=== PATIENT | male | born 1980 | race Caucasian/White ===

== ENCOUNTER → 2017-05-03 | Outpatient (CLI) | payer BC | END | disposition home or self-care (01) | LOC: C.PATHSPEC 17:41 | PROVIDERS: ATTEND Urology | DX: Z30.2 Encounter for sterilization (principal) ==

== ENCOUNTER 2017-10-25 07:52 | Emergency (ER) | payer BC, OTHER ==
[~2017-10-25] VITALS: Ht 177.8 cm; Wt 105.6 kg
[2017-10-25 07:56] VITALS: TEMP 36.9; Ht 177.8 cm; Wt 105.6 kg
[2017-10-25] MEDS ORDERED: LIDOCAINE HCL 2% VISC SOLN 20 ML UDC PO STA (08:09)
[2017-10-25] MEDS ORDERED: ALUMINUM/MAGNESIUM SUSP 30 ML UDC PO STA (08:09)
[2017-10-25] MEDS ORDERED: OMEP20TA14 PO (08:12)
[2017-10-25 08:44] LABS: ALBUMIN 4.4 gm/dl (3.4-5.0); CALCIUM 9.2 mg/dl (8.5-10.1); CREATININE 0.93 mg/dl (0.60-1.40); POTASSIUM 3.8 mmol/L (3.5-5.1)
[2017-10-25 08:47] LABS: BASO % 0.1 %; BASO ABS # 0.01 K/uL (0-0.2); EOS % 1.1 %; EOS ABS # 0.09 K/uL (0-0.5); HEMATOCRIT 52.8 % (42-52); HEMOGLOBIN 18.8 g/dL (14.0-18.0); IG# 0.04 K/uL (0.00-0.02); LYMPH % 22.4 %; LYMPH ABS # 1.86 K/uL (1.2-3.4); MEAN CELL VOLUME 87.3 fL (80-100); MEAN CORPUSCULAR HEMOGLOBIN 31.1 pg (25-34); MEAN CORPUSCULAR HGB CONC 35.6 g/dl (32-36); MEAN PLATELET VOLUME 11.4 fL (7.4-10.4); MONO % 6.7 %; MONO ABS # 0.56 K/uL (0.11-0.59); NEUT % 69.2 %; NEUT ABS # 5.75 K/uL (1.4-6.5); PLATELET COUNT 181 K/uL (130-400); RED CELL DISTRIBUTION WIDTH CV 13.4 % (11.5-14.5); RED CELL DISTRIBUTION WIDTH SD 42.9 fL (36.4-46.3); WHITE BLOOD COUNT 8.31 K/uL (4.8-10.8)
--- NOTE | 2017-10-25 09:51 | DIAGNOSTIC IMAGING REPORT ---
GALLBLADDER-ABD LIMITED HISTORY: 37 years-old Male right upper quadrant and epigastric pain acute right upper quadrant abdominal pain COMPARISON: None available TECHNIQUE: Multiple real-time sonographic images of the abdominal right upper quadrant were obtained assessing grayscale appearance and color flow FINDINGS: Imaged pancreas is unremarkable with body and tail mostly obscured by bowel gas. There is increased echogenicity and poor through transmission of the liver which measures up to 19 cm in length. No focal hepatic mass lesions. No intrahepatic biliary ductal dilation identified. Common bile duct measures 4 mm, within normal limits. No shadowing cholelithiasis, gallbladder wall thickening or pericholecystic fluid collection. Imaged right kidney is unremarkable without hydronephrosis. IMPRESSION: 1. Probable hepatic steatosis. 2. No cholelithiasis or sonographic evidence of acute cholecystitis. 3. No biliary ductal dilation. The above report was generated using voice recognition software. It may contain grammatical, syntax or spelling errors. Electronically signed by: Jonh Hernandez M.D. 10/25/2017 9:49 AM Dictated Date/Time: 10/25/2017 9:47 AM
--- NOTE | 2017-10-25 10:38 | EMERGENCY ROOM VISIT NOTE ---
History First contact with patient: 07:57 Chief Complaint: ABDOMINAL PAIN Stated Complaint: STOMACH ACHE Nursing Triage Summary: abdominal pain and diarrhea for the past 2 days. denies nausea History of Present Illness The patient is a 37 year old male who presents to the Emergency Room with complaints of stomach pains which started yesterday at 3:30 AM. The patient denies any associated nausea and vomiting. The patient does admit to having 4 loose bowel movements since the onset of the symptoms. The patient denies any hematochezia or melena. The patient denies any heartburn, or urinary symptoms. The patient states that the pain was intermittent but has become more constant. He cannot correlate it with food intake. The patient states that he had similar symptoms a week ago but thought it was due to a lot of [place] food. The patient currently rates his pain at a 6 out of 10. He has not taken anything for the pain. The patient did not drive himself to the ER. The patient was told me that he does have a history of GERD for which she takes Prilosec daily. Review of Systems 10 system review was performed and was negative unless stated otherwise history of present illness. Past Medical/Surgical History No significant past medical history Social History Smoking Status: Current Every Day Smoker Alcohol Use: occasionally Drug Use: none Marital Status: in relationship Occupation Status: employed Current/Historical Medications Scheduled Omeprazole Magnesium (Prilosec Otc), 20 MG PO QAM Physical Exam Vital Signs Date Time Temp Pulse Resp B/P (MAP) Pulse Ox O2 Delivery O2 Flow Rate FiO2 10/25/17 09:20 80 18 139/78 98 Room Air 10/25/17 07:56 36.9 86 18 142/87 97 Room Air Physical Exam GENERAL: 37-year-old white male appears in no acute distress. MENTAL Status: Alert and oriented 3. MOUTH: Mucosa is moist NECK: Supple, no lymphadenopathy noted. No carotid bruits noted. LUNGS: Clear auscultation without wheezes rales or rhonchi. CARDIAC: Regular rate and rhythm without murmur. Pulses is full and equal throughout. BACK: No CVA tenderness noted. ABDOMEN: Positive bowel sounds all 4 quadrants. Soft, tenderness palpation in the right upper quadrant and epigastric region otherwise nontender to palpation without organomegaly or masses. EXTREMITIES: No cyanosis or edema noted. Medical Decision & Procedures ER Provider Diagnostic Interpretation: GALLBLADDER-ABD LIMITED HISTORY: 37 years-old Male right upper quadrant and epigastric pain acute right upper quadrant abdominal pain COMPARISON: None available TECHNIQUE: Multiple real-time sonographic images of the abdominal right upper quadrant were obtained assessing grayscale appearance and color flow FINDINGS: Imaged pancreas is unremarkable with body and tail mostly obscured by bowel gas. There is increased echogenicity and poor through transmission of the liver which measures up to 19 cm in length. No focal hepatic mass lesions. No intrahepatic biliary ductal dilation identified. Common bile duct measures 4 mm, within normal limits. No shadowing cholelithiasis, gallbladder wall thickening or pericholecystic fluid collection. Imaged right kidney is unremarkable without hydronephrosis. IMPRESSION: 1. Probable hepatic steatosis. 2. No cholelithiasis or sonographic evidence of acute cholecystitis. 3. No biliary ductal dilation. The above report was generated using voice recognition software. It may contain grammatical, syntax or spelling errors. Electronically signed by: Jonh Hernandez M.D. 10/25/2017 9:49 AM Laboratory Results 10/25/17 08:05 Red Blood Count 6.05, Mean Corpuscular Volume 87.3, Mean Corpuscular Hemoglobin 31.1, Mean Corpuscular Hemoglobin Concent 35.6, Mean Platelet Volume 11.4, Neutrophils (%) (Auto) 69.2, Lymphocytes (%) (Auto) 22.4, Monocytes (%) (Auto) 6.7, Eosinophils (%) (Auto) 1.1, Basophils (%) (Auto) 0.1, Neutrophils # (Auto) 5.75, Lymphocytes # (Auto) 1.86, Monocytes # (Auto) 0.56, Eosinophils # (Auto) 0.09, Basophils # (Auto) 0.01 10/25/17 08:05 Test 10/25/17 08:05 White Blood Count 8.31 K/uL (4.8-10.8) Red Blood Count 6.05 M/uL (4.7-6.1) Hemoglobin 18.8 g/dL (14.0-18.0) Hematocrit 52.8 % (42-52) Mean Corpuscular Volume 87.3 fL (80-100) Mean Corpuscular Hemoglobin 31.1 pg (25-34) Mean Corpuscular Hemoglobin Concent 35.6 g/dl (32-36) Platelet Count 181 K/uL (130-400) Mean Platelet Volume 11.4 fL (7.4-10.4) Neutrophils (%) (Auto) 69.2 % Lymphocytes (%) (Auto) 22.4 % Monocytes (%) (Auto) 6.7 % Eosinophils (%) (Auto) 1.1 % Basophils (%) (Auto) 0.1 % Neutrophils # (Auto) 5.75 K/uL (1.4-6.5) Lymphocytes # (Auto) 1.86 K/uL (1.2-3.4) Monocytes # (Auto) 0.56 K/uL (0.11-0.59) Eosinophils # (Auto) 0.09 K/uL (0-0.5) Basophils # (Auto) 0.01 K/uL (0-0.2) RDW Standard Deviation 42.9 fL (36.4-46.3) RDW Coefficient of Variation 13.4 % (11.5-14.5) Immature Granulocyte % (Auto) 0.5 % Immature Granulocyte # (Auto) 0.04 K/uL (0.00-0.02) Anion Gap 7.0 mmol/L (3-11) Est Creatinine Clear Calc Drug Dose 133.6 ml/min Estimated GFR () 122.0 Estimated GFR (Non- 105.2 BUN/Creatinine Ratio 8.7 (10-20) Calcium Level 9.2 mg/dl (8.5-10.1) Total Bilirubin 1.0 mg/dl (0.2-1) Direct Bilirubin 0.2 mg/dl (0-0.2) Aspartate Amino Transf (AST/SGOT) 22 U/L (15-37) Alanine Aminotransferase (ALT/SGPT) 39 U/L (12-78) Alkaline Phosphatase 62 U/L (45-117) Total Protein 8.0 gm/dl (6.4-8.2) Albumin 4.4 gm/dl (3.4-5.0) Lipase 112 U/L (73-393) Medications Administered Medications (Trade) Dose Ordered Sig/Zoe Route Start Time Stop Time Status Last Admin Dose Admin Lidocaine HCl (Viscous Lidocaine 2% Soln) 10 ml NOW STAT PO 10/25/17 08:09 10/25/17 08:11 DC 10/25/17 08:31 10 ML Al Hydroxide/Mg Hydroxide (Maalox Susp) 30 ml NOW STAT PO 10/25/17 08:09 10/25/17 08:11 DC 10/25/17 08:31 30 ML ED Course The patient was evaluated. The patient's EMR medication list were reviewed. IV access was obtained. The patient was given a GI cocktail with minimal affect. CBC and differential, renal profile, LFTs and lipase levels were ordered.: Gallbladder ultrasound was ordered interpreted by the radiologist as above without any acute findings. Labs are reviewed and were unremarkable. The patient was informed of the ultrasound findings. The patient was discharged home in stable condition. Medical Decision Differential diagnosis include acute cholecystitis, cholelithiasis, GERD, acute gastritis [place] Drug Monitoring Program Search Results: patient reviewed within database Medication Reconcilliation Current Medication List: was personally reviewed by me Blood Pressure Screening Patient's blood pressure: Normal blood pressure Impression Primary Impression: Epigastric pain Additional Impression: GERD (gastroesophageal reflux disease) Departure Information Dispostion Home / Self-Care Condition GOOD Referrals Nathaniel Doyle M.D. (PCP) Forms Call Back Authorization, HOME CARE DOCUMENTATION FORM, IMPORTANT VISIT INFORMATION Patient Instructions ED GERD, My [facility] [employer] [facility] Additional Instructions Avoid spicy and acidic foods. Do not eat 4 hours prior to lying down. Continue Prilosec daily. Also recommend Zantac 150 mg at bedtime. If your symptoms are not improving in 2-3 weeks, recommend follow-up with your family doctor for further evaluation and possible endoscopy. If symptoms worsen in the interim, return to ER. Problem Qualifiers Additional Impression: GERD (gastroesophageal reflux disease) Esophagitis presence: esophagitis presence not specified Qualified Codes: K21.9 - Gastro-esophageal reflux disease without esophagitis
[2017-10-25 10:58] VITALS: BP 144/72; PULSE 77; O2SAT 99
== END 2017-10-25 10:59 | disposition home or self-care (01) ==
LOC: C.EDB 07:53
DX: K21.9 Gastro-esophageal reflux disease without esophagitis (principal); R11.2 Nausea with vomiting, unspecified; Z79.899 Other long term (current) drug therapy; F17.210 Nicotine dependence, cigarettes, uncomplicated